=== PATIENT | male | born 1970 | race Caucasian/White ===

== ENCOUNTER → 2016-12-02 | Outpatient (CLI) | payer OTHER, BC ==
[~2016-12-02] MED LIST: ALBU0.633 IH; ALBU8.5H6 INH; FLT11013 INH; FLUO40CA PO; FLUT16SP NS; HYDR-3702 PO; INSU100V32 SQ; LORA5TAB9 PO; METF500T PO; MONT10TA21 PO; ONDA8TAB6 PO; TADA20TA PO; TAMS-8 PO; TRAM-25 PO
--- NOTE | 2016-12-02 11:31 | Diagnostic Imaging Report ---
INDICATION: Chronic hip pain. 10:05 AM. AVAILABLE COMPARISONS: None FINDINGS: Obtained views demonstrated no evidence for fracture, dislocation or other significant abnormality. No focal osseous lesion is seen. The femoral acetabular joint is normal. The sacroiliac joint is not visualized. IMPRESSION: 1. No demonstrated lesion. Dictated by: Dictated on workstation # [id number]
--- NOTE | 2016-12-02 14:08 | Diagnostic Imaging Report ---
INDICATION: Chronic back and hip pain. Frontal, lateral, and L5-S1 spot radiograph of the lumbar spine performed. 10:17 AM. AVAILABLE COMPARISONS: None FINDINGS: Posterior vertebral body alignment is normal. Mild osteophyte formation is present throughout the lumbar spine. Intervertebral disc spaces are satisfactorily maintained. No osteolytic or osteoblastic lesion is identified. Sacroiliac joints are within normal limits. Surgical clips are seen in the gallbladder fossa. IMPRESSION: 1. Mild degenerative changes of the lumbar spine. Dictated by: Dictated on workstation # [id number]
== END ==
LOC: RAD 09:44
PROVIDERS: ATTEND Surgery
DX: Z02.71 Encounter for disability determination (principal)
CPT/HCPCS: 72100; 73502

== ENCOUNTER → 2016-12-30 | Outpatient (CLI) | payer OTHER | LOC: RT 12:41 | PROVIDERS: ATTEND Surgery | DX: Z02.71 Encounter for disability determination (principal) | CPT/HCPCS: 94060; 94729 ==